=== PATIENT | female | born 1960 | race Caucasian/White ===

== ENCOUNTER 2018-12-22 12:35 | Emergency (ER) | payer MEDICAID ==
[~2018-12-22] VITALS: Ht 154.9 cm; Wt 87.0 kg
--- NOTE | 2018-12-22 12:43 | NUR ---
CALLED FOR TRIAGE, NO ANSWER
--- NOTE | 2018-12-22 14:19 | NUR ---
"JUST DIZZY" HAS BEEN FOR A WEEK, "MY LEFT ARM STARTED GOING NUMB, I CANT HEAR, I CANT CONCENTRATE. THE ANXIETY IS SO BAD I CANT SLEEP AT NIGHT" Reports recent increase in stress (lost home/anniversdary of son's suicide). Denies illicits/etoh. Staff [employer]ical [employer] skeptical vitals stable on threat monitoring analyst, significant wheezing noted, unlabored breathing/pox 95%-provider made aware urine sample obtained-sent
[2018-12-22 14:24] LABS: ALANINE AMINOTRANSFERASE 20 U/L (12-78); ALBUMIN 3.5 g/dL (3.4-5.0); ANION GAP 7 mmol/L (5-15); CALCIUM 8.9 mg/dL (8.5-10.1); CHLORIDE 106 mmol/L (98-107); CREATININE 0.67 mg/dL (0.55-1.02)
[2018-12-22 14:28] LABS: BASOPHILS # (AUTO) 0.02 x10^3/uL (0-0.1); BASOPHILS % (AUTO) 0 % (0-1); EOSINOPHILS # (AUTO) 0.12 x10^3/uL (0-0.4); EOSINOPHILS % (AUTO) 1 % (1-7); LYMPHOCYTES # (AUTO) 2.69 x10^3/uL (1-3.4); LYMPHOCYTES % (AUTO) 31 % (22-44); MD NO; MEAN CORPUSCULAR HEMOGLOBIN 28.2 pg (27.0-34.8); MEAN CORPUSCULAR HGB CONC 32.7 g/dL (32.4-35.8); MEAN CORPUSCULAR VOLUME 86.4 fL (80-100); MEAN PLATELET VOLUME 8.2 fL (7.4-10.4); MONOCYTES # (AUTO) 0.59 x10^3/uL (0.2-0.8); MONOCYTES % (AUTO) 7 % (2-9); NEUTROPHILS # (AUTO) 5.29 x10^3/uL (1.8-6.8); NEUTROPHILS % (AUTO) 61 % (42-75); PLATELET COUNT 278 x10^3/uL (130-400); RED CELL DISTRIBUTION WIDTH 14.7 % (9.6-15.2)
[2018-12-22 14:29] LABS: ALKALINE PHOSPHATASE 105 U/L (45-117); BILIRUBIN,TOTAL 0.2 mg/dL (0.2-1.0); TOTAL PROTEIN 7.7 g/dL (6.4-8.2); TROPONIN I < 0.015 ng/mL (0.000-0.045)
[2018-12-22] MEDS ORDERED: POTASSIUM CHLORIDE 20 MEQ TAB.ER.PRT ONE (14:54)
--- NOTE | 2018-12-22 14:54 | NUR ---
REPORT TO FLACA SAHNI
[2018-12-22 14:59] VITALS: BP 149/83
--- NOTE | 2018-12-22 14:59 | NUR ---
RECEIVED REPORT FROM KAITLYN ORELLANA. PT RESTING ON [facility]. AWARE RT WILL COME PERFORM BREATHING TX.
[2018-12-22] MEDS ORDERED: POTASSIUM CHLORIDE 20 MEQ TAB.ER.PRT PO ONE (15:00)
[2018-12-22] MEDS ORDERED: ALBUTEROL/IPRATROPIUM 2.5MG/0.5MG, 3 ML ONE ×2 (15:03)
[2018-12-22 15:07] LABS: MICROSCOPIC INDICATED
[2018-12-22] MEDS: ALBUTEROL/IPRATROPIUM 2.5MG/0.5MG, 3 ML NPPB SCH ×2 (15:08→15:17)
[2018-12-22 15:25] LABS: CULTURE INDICATED? NO
== END 2018-12-22 15:36 | disposition home or self-care (01) ==
LOC: ED 15:05
DX: R53.83 Other fatigue (principal); J44.9 Chronic obstructive pulmonary disease, unspecified; F17.200 Nicotine dependence, unspecified, uncomplicated
CPT/HCPCS: 36415; 71046; 80053; 81001; 84484; 85025; 93005; 94640; 99284; J7512; J7620

== ENCOUNTER 2018-12-29 13:40 | Emergency (ER) | payer MEDICAID ==
[~2018-12-29] VITALS: Ht 154.9 cm; Wt 86.9 kg
[2018-12-29 13:42] VITALS: BP 148/91
--- NOTE | 2018-12-29 14:25 | NUR ---
ABD WOUND DRESSED WITH XEROFORM, ABD PAD AND SILK TAPE. WOUND CARE SUPPLIES PROVIDED TO PT. D/C INSTRUCTIONS, MEDS & F/U APPT RV'WD WITH PT, SHE VERBALIZES UNDERSTANDING. RX GIVEN X3. PT AMBULATED OUT OF ED WITHOUT DIFFICULTY.
== END 2018-12-29 14:34 | disposition home or self-care (01) ==
LOC: ED 14:13
DX: L03.311 Cellulitis of abdominal wall (principal); F17.200 Nicotine dependence, unspecified, uncomplicated
CPT/HCPCS: 99283

== ENCOUNTER 2019-01-01 06:27 | Emergency (ER) | payer MEDICAID ==
[~2019-01-01] VITALS: Ht 154.9 cm; Wt 85.8 kg
--- NOTE | 2019-01-01 07:04 | NUR ---
PT PRESENTS TO ED C/O GENERALIZED THORACIC BACK PAIN S/P FALL LAST NIGHT. PT STATES SHE TRIPPED AND FELL, HITTING HER BACK AGAINST A WALL. PT DENIES MIDLINE CERVICAL SPINE PAIN. PT STATES SHE DID HIT HER HEAD BUT DENIES LOC. PT IS A&OX4, NEURO INTACT. NO OBVIOUS SIGNS OF TRAUMA. PT AMBULATORY TO BATHROOM WITH STEADY GAIT FOR URINE SAMPLE.
[2019-01-01 08:20] LABS: MICROSCOPIC AUTO
[2019-01-01 08:21] LABS: CULTURE INDICATED? YES
[2019-01-01 08:36] VITALS: BP 158/91
--- NOTE | 2019-01-01 08:37 | NUR ---
Patient/Caregiver given discharge instructions and they have confirmed that they understand the instructions. Patient ambulatory with steady gait. Pt left with all personal belongings.
== END 2019-01-01 08:39 | disposition home or self-care (01) ==
LOC: ED 08:33
DX: S23.3XXA Sprain of ligaments of thoracic spine, initial encounter (principal); M51.34 Other intervertebral disc degeneration, thoracic region; N30.00 Acute cystitis without hematuria; W01.0XXA Fall on same level from slipping, tripping and stumbling without subsequent striking against object, initial encounter; Y93.89 Activity, other specified; Y92.89 Other specified places as the place of occurrence of the external cause; Y99.8 Other external cause status
CPT/HCPCS: 72072; 81001; 87086; 99284

== ENCOUNTER 2019-01-28 17:53 | Emergency (ER) | payer MEDICAID ==
[~2019-01-28] VITALS: Ht 154.9 cm; Wt 88.5 kg
[2019-01-28 18:30] VITALS: BP 145/92
== END 2019-01-28 20:54 | disposition home or self-care (01) ==
LOC: ED 18:07
DX: K52.1 Toxic gastroenteritis and colitis (principal); T36.95XA Adverse effect of unspecified systemic antibiotic, initial encounter; Y92.89 Other specified places as the place of occurrence of the external cause
CPT/HCPCS: 36415; 80053; 81001; 83690; 85025; 87324; 99283; Q0162